=== PATIENT | female | born 1955 | race Caucasian/White ===

== ENCOUNTER → 2018-04-01 | Outpatient (CLI) | payer OTHER | LOC: FIMAGING 13:43 | PROVIDERS: ATTEND Obstetrics & Gynecology Gynecology | DX: Z12.31 Encounter for screening mammogram for malignant neoplasm of breast (principal); Z85.850 Personal history of malignant neoplasm of thyroid; Z80.3 Family history of malignant neoplasm of breast ==

== ENCOUNTER → 2018-04-08 | Outpatient (CLI) | payer OTHER | LOC: FIMAGING 12:28 | PROVIDERS: ATTEND Physician Assistant Medical | DX: N60.01 Solitary cyst of right breast (principal) ==

== ENCOUNTER 2018-07-04 14:27 | Emergency (ER) | payer OTHER ==
--- NOTE | 2018-07-04 14:52 | EDPHY ---
HPI/HX/ROS/PE/MDM Narrative: CHIEF COMPLAINT: Gastrointestinal issues HISTORY OF PRESENT ILLNESS: This patient is a 63 y/o female complaining of gastrointestinal discomfort onset Saturday night. She complains of a cramping discomfort, primarily in her left lower quadrant. She initially thought her symptoms were due to eating burritos with homemade refried beans, but they have persisted so she presents for evaluation. She denies nausea or vomiting. She has had soft stools but denies any watery stool. Food does not seem to alleviate or exacerbate her pain. She denies fever. Denies dysuria or hematuria. No chills, chest pain, shortness of breath, palpitations, headache, lightheadedness. REVIEW OF SYSTEMS: A comprehensive 10 system review of systems was reviewed and is otherwise negative aside from elements mentioned in the history of present illness. PAST MEDICAL HISTORY: Asthma (Singulair, inhaler). Hyperlipidemia (Crestor). Hypertrophic cardiomyopathy (Bystolic) Pre-diabetic (Metformin). Appendectomy. SOCIAL HISTORY: . Lives in [place]. Employed. Does not abuse tobacco, drugs, or alcohol. VITAL SIGNS: Reviewed by me GENERAL: Well-developed, well-nourished, resting comfortably in no respiratory distress. HEENT: Atraumatic. Eyes: No icterus, no injection. Mouth: moist mucous membranes. No erythema or lesions. Neck: supple with no adenopathy. LUNGS: Clear to auscultation bilaterally, no wheezes, rhonchi or rales. CARDIAC: Regular rate and rhythm, no rubs, murmurs or gallops. ABDOMEN: Mildly obese. Mild LUQ and left mid abdomen tenderness, moderate LLQ tenderness. Her discomfort spreads to her left lateral abdominal wall. Soft, nondistended, bowel sounds normal. BACK: No CVA tenderness. EXTREMITIES: No trauma. No edema. Range of motion is normal throughout. NEURO: Alert and oriented, grossly nonfocal. SKIN: Warm and dry, no rash. PSYCHIATRIC: Normal mentation, no agitation. Portions of this note were transcribed by a bio medical technician. I personally performed a history, physical exam, medical decision making, and confirmed accuracy of information the transcribed note. ED Course: 63 y/o female presents with left-sided abdominal discomfort onset two days ago. Mild to moderate left-sided abdominal tenderness on exam, particularly in the LLQ. Plan for CT abdomen/pelvis. IV established. Labs including CBC, chemistries , lipase, UA. Plan to administer 1L IV NS. WBC elevated at 16,500. 16:[address] Au, radiologist. CT positive for diverticulitis. See additional findings below. Plan to administer 875mg PO Augmentin. Plan to administer 30mg IV Ketorolac for pain relief. Plan to discharge patient home in good condition with prescription for Augmentin. She will be given a prepack of hydrocodone for severe pain. She will follow up with her primary care provider. I recommended she follow up with gastroenterology as well for colonoscopy. She has never had a colonoscopy before. Discussed diverticulitis diet. We also discussed options for constipation relief including OTC medications. Return precautions discussed. She is comfortable with this plan. MDM: The differential diagnosis for the patient's abdominal pain was considered including but not limited to diverticulitis, diverticular abscess, constipation , bowel obstruction, kidney stone, urinary tract infection, pelvic etiology. - Data Points Imaging Results: Imaging Impressions Abdomen CT 07/04/18 15:03 Impression: 1. Acute diverticulitis at the junction of descending and sigmoid colon, with small microperforation, without abscess or intraperitoneal free air. 2. Minimal cholelithiasis. 3. Calcified uterine fibroids. 4. Mild aortic atherosclerosis. Results called to Dr. Reyes at 4:00 PM. Imaging: Discussed imaging studies w/ newsroom intern Radiologist Laboratory Results: Laboratory Results 07/04/18 15:18 07/04/18 15:18 07/04/18 07/04/18 07/04/18 15:18 15:18 15:18 WBC 16.56 10^3/uL H 10^3/uL (3.80-9.50) RBC 4.91 10^6/uL 10^6/uL (4.18-5.33) Hgb 14.8 g/dL g/dL (12.6-16.3) Hct 43.6 % % (38.0-47.0) MCV 88.8 fL fL (81.5-99.8) MCH 30.1 pg pg (27.9-34.1) MCHC 33.9 g/dL g/dL (32.4-36.7) RDW 12.7 % % (11.5-15.2) Plt Count 270 10^3/uL 10^3/uL (150-400) MPV 9.5 fL fL (8.7-11.7) Neut % (Auto) 75.9 % H % (39.3-74.2) Lymph % (Auto) 13.0 % L % (15.0-45.0) [place] % (Auto) 9.5 % % (4.5-13.0) Eos % (Auto) 0.8 % % (0.6-7.6) Baso % (Auto) 0.4 % % (0.3-1.7) Nucleat RBC Rel Count 0.0 % % (0.0-0.2) Absolute Neuts (auto) 12.57 10^3/uL H 10^3/uL (1.70-6.50) Absolute Lymphs (auto) 2.15 10^3/uL 10^3/uL (1.00-3.00) Absolute Monos (auto) 1.57 10^3/uL H 10^3/uL (0.30-0.80) Absolute Eos (auto) 0.13 10^3/uL 10^3/uL (0.03-0.40) Absolute Basos (auto) 0.07 10^3/uL 10^3/uL (0.02-0.10) Absolute Nucleated RBC 0.00 10^3/uL 10^3/uL (0-0.01) Immature Gran % 0.4 % % (0.0-1.1) Immature Gran # 0.07 10^3/uL 10^3/uL (0.00-0.10) RBC/WBC/PLT Morphology TNP Platelet Estimate TNP Sodium 139 mEq/L mEq/L (135-145) Potassium 4.4 mEq/L mEq/L (3.3-5.0) Chloride 103 mEq/L mEq/L (97-110) Carbon Dioxide 26 mEq/l mEq/l (22-31) Anion Gap 10 mEq/L mEq/L (8-16) BUN 11 mg/dL mg/dL (7-23) Creatinine 0.6 mg/dL mg/dL (0.6-1.0) Estimated GFR > 60 Glucose 116 mg/dL H mg/dL (70-100) Calcium 9.6 mg/dL mg/dL (8.5-10.4) Lipase 64 IU/L IU/L (23-300) Urine Color PALE YELLOW Urine Appearance CLEAR Urine pH 7.0 (5.0-7.5) Ur Specific [place] 1.001 L (1.002-1.030) Urine Protein NEGATIVE (NEGATIVE) Urine Ketones NEGATIVE (NEGATIVE) Urine Blood 1+ H (NEGATIVE) Urine Nitrate NEGATIVE (NEGATIVE) Urine Bilirubin NEGATIVE (NEGATIVE) Urine Urobilinogen NEGATIVE EU EU (0.2-1.0) Ur Leukocyte Esterase NEGATIVE (NEGATIVE) Urine RBC 1-3 /hpf /hpf (0-3) Urine WBC 0-1 /hpf /hpf (0-3) Ur Epithelial Cells TRACE /lpf /lpf (NONE-1+) Urine Glucose NEGATIVE (NEGATIVE) Medications Given: Discontinued Medications Hydrocodone Bitart/Acetaminophen ([place] 5/325mg Prepack#6) 1 btl TAKEHOME EDNOW ONE Stop: 07/04/18 16:39 Last Admin: 07/04/18 16:58 Dose: 1 btl Amoxicillin/Clavulanate Potassium (Augmentin 875mg) 875 mg PO EDNOW ONE PRN Reason: Protocol Stop: 07/04/18 16:15 Last Admin: 07/04/18 16:30 Dose: 875 mg Amoxicillin/Clavulanate Potassium (Augmentin 875mg) 875 mg PO EDNOW ONE PRN Reason: Protocol Stop: 07/04/18 16:39 Last Admin: 07/04/18 16:58 Dose: 875 mg Sodium Chloride (Ns) 1,000 mls @ 0 mls/hr IV EDNOW ONE; Wide Open PRN Reason: Protocol Stop: 07/04/18 15:03 Last Admin: 07/04/18 15:15 Dose: 1,000 mls Ketorolac Tromethamine (Toradol) 30 mg IVP EDNOW ONE Stop: 07/04/18 16:15 Last Admin: 07/04/18 16:27 Dose: 30 mg General Time Seen by Provider: 07/04/18 14:39 Initial Vital Signs: Initial Vital Signs Temperature (C) 36.7 C 07/04/18 14:30 Heart Rate 79 07/04/18 14:30 Respiratory Rate 18 07/04/18 14:30 Blood Pressure 106/81 H 07/04/18 14:30 O2 Sat (%) 92 07/04/18 14:30 O2 Delivery Mode Room Air Allergies/Adverse Reactions: No Known Allergies Allergy (Verified 07/04/18 14:29) Home Medications: Medication Instructions Recorded Albuterol Sulfate 3 ml IH Q4 PRN 07/21/13 Albuterol Sulfate [Proventil Hfa] 2 puffs IH Q4-6PRN PRN 07/21/13 Aspirin [Aspirin 81mg (OTC)] 81 mg PO DAILY 07/21/13 Fluticasone Nasal [Flonase Nasal 1 sprays EACHNARE BID 07/21/13 [place] (RX)] Levothyroxine [Synthroid] 200 mcg PO [id number]@06 07/21/13 Montelukast Sodium [Singulair 10 10 mg PO HS 07/21/13 mg (RX)] Nebivolol HCl [Bystolic 5 mg (RX)] 5 mg PO DAILY 07/21/13 Statin Med 11/01/13 Symbicort 80-4.5 Mcg Inhaler 11/01/13 Amoxicillin/Clavulanate Pot 875 mg PO BID #14 tab 07/04/18 [Augmentin 875 MG TAB (*)] Departure - Departure Disposition: Home, Routine, Self-Care Clinical Impression: Diverticulitis Constipation Qualifiers: Constipation type: unspecified constipation type Qualified Code(s): K59.00 - Constipation, unspecified Condition: Good Instructions: Hydrocodone/Acetaminophen (By mouth), Amoxicillin/Clavulanate Potassium (By mouth), Diverticulitis (ED), Constipation (ED), High Fiber Diet ( ED), Diverticulitis Diet (ED) Additional Instructions: 1. Take Augmentin as prescribed. Take your next dose around 5 or 6am tomorrow morning. It is important to finish your entire course of antibiotics even if you are feeling better. 2. Stay well hydrated. See attached instructions regarding a suggested diet to help relieve symptoms of diverticulitis. 3. You may try Metamucil, available over the counter, as directed on the packaging for relief of constipation. You may also try Magnesium Citrate, also available over the counter, as directed as needed for severe constipation. 4. Please follow up with the primary care physician to advised that you were diagnosed with diverticulitis. Please follow up with Gastroenterology for colonoscopy after your diverticulitis episode has resolved. Please return to the emergency department or seek care urgently if you develops worsening pain, fever, vomiting, or other concerns. Referrals: Ana Cristina Carpio DO [Doctor of Osteopathy] - As per Instructions Priscila Johnson MD [Medical Doctor] - As per Instructions Prescriptions: Amoxicillin/Clavulanate Pot [Augmentin 875 MG TAB (*)] 875 mg PO BID #14 tab Report Scribed for: Lindsey Reyes Report Scribed by: Vero Vidal Date of Report: 07/04/18 Time of Report: 16:09
[2018-07-04] MEDS ORDERED: NS 1,000 ML IV ONE (15:02)
[2018-07-04 15:26] LABS: PLATELET COUNT 270 10^3/uL (150-400)
[2018-07-04] MEDS ORDERED: IOPAMIDOL (ISOVUE-300) 100 ML BTL ONE (15:42)
[2018-07-04] MEDS ORDERED: KETOROLAC 30 MG/1 ML SDV IVP ONE (16:14)
[2018-07-04] MEDS ORDERED: AMOXICILLIN/CLAVULANATE POT 875/125 MG TAB PO ONE ×2 (16:14→16:38)
[2018-07-04 16:33] VITALS: BP 124/77
[2018-07-04] MEDS ORDERED: HYDROCOD/APAP 5/325 PREPACK#6 BTL TAKEHOME ONE (16:38)
== END 2018-07-04 16:59 | disposition home or self-care (01) ==
DX: K59.00 Constipation, unspecified (principal); K57.20 Diverticulitis of large intestine with perforation and abscess without bleeding; K80.20 Calculus of gallbladder without cholecystitis without obstruction; D25.9 Leiomyoma of uterus, unspecified; I70.0 Atherosclerosis of aorta; E86.9 Volume depletion, unspecified; Q42.8 Congenital absence, atresia and stenosis of other parts of large intestine
CPT/HCPCS: 96374; J1885; Q9967

== ENCOUNTER → 2018-11-03 | Outpatient (CLI) | payer OTHER | LOC: BMCIMAGING 14:08 | PROVIDERS: ATTEND Family Medicine | DX: R05 Cough (principal) ==

== ENCOUNTER → 2018-12-06 | Outpatient (CLI) | payer OTHER | LOC: BMCIMAGING 09:08 | PROVIDERS: ATTEND Allergy & Immunology Allergy | DX: J98.4 Other disorders of lung (principal) ==

== ENCOUNTER → 2019-01-30 | Outpatient (CLI) | payer OTHER ==
[~2019-01-30] MED LIST: IOPAMIDOL (ISOVUE-300) 100 ML BTL ONE
== END ==
LOC: FIMAGING 15:54
PROVIDERS: ATTEND Nurse Practitioner Family
DX: R06.02 Shortness of breath (principal); I25.10 Atherosclerotic heart disease of native coronary artery without angina pectoris
CPT/HCPCS: Q9967